=== PATIENT | female | born 1965 | race Caucasian/White ===

== ENCOUNTER 2024-08-29 18:52 | Emergency (ER) | payer BC, SELFPAY ==
--- NOTE | 2024-08-29 19:04 | ED.GENADULT ---
HPI - General Adult General Chief complaint: Wound/Laceration Stated complaint: left hand wound Time Seen by Provider: 08/29/24 21:53 Source: patient Mode of arrival: ambulatory Limitations: no limitations History of Present Illness ED Provider: Mark MCKEON HPI narrative: Patient is a 59-year-old female presenting to the ED for evaluation of a laceration to her left hand. Patient reports she was attempting to open a drawer which was stuck shut due to recent painting, the patient reports while attempting to open the door the glass knob broke in her hand move forward into the broken glass. The patient reports suffering a v-shaped laceration to the dorsum of the left hand overlying the 2nd metacarpal. Patient denies distal paresthesias, impaired or painful range of motion, or foreign body sensation. Patient does not know the date of her last tetanus shot. Related Data Allergies Allergy/AdvReac Type Severity Reaction Status Date / Time No Known Allergies Allergy Verified 08/29/24 19:09 Review of Systems Review of Systems: Yes all other systems are reviewed and are negative PMFSH Social History Social History Smoked in Last 30 Days: Yes Use of substances other than those prescribed or required for medical reasons: No Advance Directives: No Advance Directives Information Provided: No Do you have a plan to hurt others: No Plan Patient : No Physical Exam ED Vital Signs: Vital Signs - 24 hr 08/29/24 19:07 Temperature 97.4 F Pulse Rate 131 H Respiratory Rate 20 Blood Pressure 93/65 Pulse Oximetry 96 Oxygen Delivery Method Room Air BMI result Body Mass Index 22.5 CONSTITUTIONAL: The patient appears non-toxic, well nourished and in no acute distress. Vital signs as documented. HEAD: Atraumatic, normocephalic. EYES: EOMs grossly intact, pupils equal, conjunctiva clear, no exudate. ENT: Nares patent, no discharge. Airway patent, no audible stridor, visible mucosa is pink and moist without noted lesions. NECK: trachea is midline, no obvious masses or gross abnormalities. CHEST: Symmetric movement, normal appearance. LUNGS: Non-labored work of breathing. CARDIAC: No evidence of hypoperfusion. ABDOMEN: Nondistended, no obvious injury. : Deferred. EXTREMITIES: Moves all extremities spontaneously without reported pain. There is a approximate 3 cm v-shaped superficial laceration of the epidermis on the dorsum of the left hand overlying the 2nd metacarpal. No bony tenderness, no crepitus. There is no visible or palpable foreign body. No invasion into the subcutaneous tissue, no evidence of muscle or tendon invasion. Distal CSM is intact, capillary refill normal in all 5 digits. No other obvious injury or deformity noted. NEURO: Alert and oriented x3, CN II-XII appear grossly intact. Cerebellar Functioning grossly intact. Speech clear and appropriate. SKIN: Warm, dry, color appropriate. No rashes or lesions noted. Course Course Course Narrative: This is a rapid medical exam performed by Jose Alberto Reeves NP: Additional HPI, ROS, PE not included below will be deferred to primary provider. Patient is a 59-year-old right hand dominant female presenting with laceration to left hand. She was painting and a glass handle broke accidentally. Unsure last tdap. V-shaped laceration to left dorsal hand. Full ROM to all fingers of left hand. Plan: Tdap, needs repair Medications Administered Discontinued Medications Generic Name Dose Route Start Last Admin Trade Name Freq PRN Reason Stop Dose Admin Diphtheria/Tetanus/Acell Pertussis 0.5 ml 08/29/24 19:06 08/29/24 20:13 Diphth,Pertus(Acell),Tet Adult 0.5 Ml Syringe IM 08/29/24 19:07 0.5 ml .ONCE ONE Administration Procedures Laceration Laceration 1: Site: upper extremity Side (If applicable): left Size (cm): 3 Description: flap Depth: simple, single layer Local Anesthetic: lidocaine 1% Amount of anesthesia used (mL): 2 Pre-repair: wound explored, irrigated extensively and deep structures intact Skin layer closed with: nylon Size (cm): 4-0 Number of sutures: 6 Technique: simple, interrupted Medical Decision Making Medical Decision Making MDM Narrative: 10:27 PM 08/29/2024 (David MCKEON): Patient is a 59-year-old female presenting to the ED for evaluation of a superficial laceration to left hand from a broken glass knob on a drawer. The patient's wound was evaluated, there is no bony tenderness, no crepitus, no reported foreign body sensation, no visible or palpable foreign body, no invasion into the subcutaneous tissue, muscle, or tendons. Laceration repaired with sutures, bacitracin and dressing applied, patient will be discharged to follow up for suture removal. Tests considered The following testing was considered but not selected: X-ray Discharge Plan Discharge Clinical Impression: Laceration Patient Disposition: Home, Self-Care Instructions: Laceration (ED) Additional Instructions: Thank you for choosing [facility] Emergency Department for your care today. Your laceration today appears non-complicated. The laceration was repaired with nonabsorbable sutures which will need to be removed in 5-7 days. Please return to the emergency department or follow-up with your primary care provider for removal of sutures. Please apply bacitracin and a clean dry dressing to the laceration twice daily for the first 2-3 days. Then please keep the area clean and dry, but uncovered and exposed to the air to allow the laceration to heal. While it is perfectly acceptable to allow water to run over the sutures while showering, please do not swim, or submerge the laceration in standing water until the sutures are removed. You may take alternating (staggered) doses of ibuprofen 600mg and Tylenol 1000mg every 4 hours as needed for any additional pain. Your tetanus shot was updated today. If you do not have a primary care physician, please call the [facility] at [phone] to establish a new primary care physician. While waiting to establish your new primary care physician, you can call our [facility] at [phone] for non-emergency needs. Please return to the emergency department if you develop any uncontrollable bleeding, re-opening of your wound, redness advancing >1-2 cm away from your wound, or white milky discharge from your wound. Please also return if you experience any other new or worsening symptoms or concerns. Referrals: Maico Stewart MD [Primary Care Provider, Medical] Clinical Impression: Laceration Print Language: Turkish
[2024-08-29 19:07] VITALS: BP 93/65; PULSE 131; RESP 20; TEMP 36.3; O2SAT 96; BMI 22.5
[2024-08-29] MEDS: Diphth,Pertus(ACell),Tet Adult 0.5 ML SYRINGE IM (20:13)
--- NOTE | 2024-08-29 20:19 | PC.NURSE ---
tdap updated,pt changed into hospital attire, laceration on left hand no active bleeding at this time. no complaints of pain, CSM in tact- pt awating provider eval, call palomares within reach
[2024-08-29] MEDS: Lidocaine HCl 1 % MPF 5 ML VIAL INFILTRATI (22:32)
[2024-08-29 22:36] VITALS: BP 93/65; PULSE 75; RESP 20; TEMP 36.3; O2SAT 96
== END 2024-08-29 22:37 | disposition home or self-care (01) ==
PROVIDERS: Emergency Provider Emergency Medicine; PCP Internal Medicine
DX: S61.412A Laceration without foreign body of left hand, initial encounter (principal); M79.642 Pain in left hand; W25.XXXA Contact with sharp glass, initial encounter; Y93.9 Activity, unspecified; Y92.9 Unspecified place or not applicable; Y99.8 Other external cause status; Z23 Encounter for immunization
CPT/HCPCS: 12042; 90471; 90715; 99284; J2003